=== PATIENT | female | born 1955 | race Two or more races ===

== ENCOUNTER → 2017-01-30 | Outpatient (CLI) | payer BC ==
[2017-01-30 10:41] LABS: Basophils # (auto) 0.1 uL; Basophils % (auto) 0.6 % (0.0-2.0); Eosinophils # (auto) 0.2 uL; Eosinophils % (auto) 1.6 % (0.0-7.0); Hematocrit 40.5 % (36.0-46.0); Hemoglobin 13.9 g/dL (12.2-16.2); Lymphocytes # (auto) 1.9 uL; Lymphocytes % (auto) 14.2 % (10.0-50.0); Mean Corpuscular Hemoglobin 30.3 pg (28.0-32.0); Mean Corpuscular Hgb Conc. 34.2 g/dL (32.0-36.0); Mean Corpuscular Volume 88.6 fL (80.0-100.0); Mean Platelet Volume 7.8 fL (7.4-10.4); Monocytes # (auto) 0.6 uL; Monocytes % (auto) 4.8 % (0.0-12.0); Neutrophils # (auto) 10.7 uL; Neutrophils % (auto) 78.8 % (37.0-80.0); Platelet Count (auto) 387 10^3/uL (140-450); Red Cell Distribution Width 13.2 % (11.6-16.0); White Blood Cell 13.5 10^3/uL (4.4-10.8)
[2017-01-30 10:55] LABS: Urine Bilirubin Negative (Negative); Urine Blood Negative /uL (Negative); Urine Color Yellow (Yellow); Urine Hyaline Cast FEW /lpf (0 - 2); Urine Mucus FEW (None Seen); Urine RBC 3 /hpf (0 - 4); Urine Squamous Epithelial Cell FEW /hpf (<5); Urine Urobilinogen Normal (Negative)
[2017-01-30 10:56] LABS: Urine Glucose 2+ mg/dL (Normal); Urine Ketone 1+ (Negative); Urine Nitrite POSITIVE (Negative)
[2017-01-30 11:04] LABS: Albumin 3.4 g/dL (3.4-5.0); BUN/Creatinine Ratio 14.9; Bilirubin, Total 0.3 mg/dL (0.2-1.0); Calcium 8.9 mg/dL (8.5-10.1); Potassium 4.4 mmol/L (3.5-5.1); Total Protein 8.5 g/dL (6.4-8.2)
== END | disposition home or self-care (01) ==
LOC: LAB 10:08
PROVIDERS: ATTEND Internal Medicine
DX: Z00.00 Encounter for general adult medical examination without abnormal findings (principal); I10 Essential (primary) hypertension; E78.2 Mixed hyperlipidemia; E55.9 Vitamin D deficiency, unspecified
CPT/HCPCS: 36415; 80053; 80061; 81001; 82306; 84443; 85025

== ENCOUNTER 2017-02-09 20:03 | Emergency (ER) | payer BC ==
[~2017-02-09] VITALS: Ht 170.2 cm; Wt 72.6 kg
[~2017-02-09 20:03] MED LIST: FLUT50SP13; LEVO175T31 PO; NORGTAB PO
[2017-02-09 20:46] LABS: Basophils # (auto) 0.2 uL; Basophils % (auto) 1.1 % (0.0-2.0); Eosinophils # (auto) 0.1 uL; Eosinophils % (auto) 0.6 % (0.0-7.0); Hematocrit 24.3 % (36.0-46.0); Hemoglobin 8.6 g/dL (12.2-16.2); Lymphocytes % (auto) 12.5 % (10.0-50.0); Mean Corpuscular Hemoglobin 30.8 pg (28.0-32.0); Mean Corpuscular Hgb Conc. 35.2 g/dL (32.0-36.0); Mean Corpuscular Volume 87.3 fL (80.0-100.0); Mean Platelet Volume 7.4 fL (7.4-10.4); Monocytes # (auto) 0.7 uL; Monocytes % (auto) 4.7 % (0.0-12.0); Neutrophils # (auto) 12.9 uL; Neutrophils % (auto) 81.1 % (37.0-80.0); Platelet Count (auto) 530 10^3/uL (140-450); Red Cell Distribution Width 13.1 % (11.6-16.0); White Blood Cell 15.9 10^3/uL (4.4-10.8)
[2017-02-09 20:57] LABS: INR 0.94 (0.9-1.15); Partial Thromboplastin Time 21.7 sec (22.64-33.71); Prothrombin Time 10.2 sec (9.37-12.3)
[2017-02-09 21:03] LABS: Albumin 2.9 g/dL (3.4-5.0); BUN/Creatinine Ratio 11.3; Bilirubin, Total 0.3 mg/dL (0.2-1.0); Calcium 8.2 mg/dL (8.5-10.1); Potassium 3.9 mmol/L (3.5-5.1); Total Protein 7.8 g/dL (6.4-8.2)
[2017-02-10] MEDS ORDERED: SITA50TA PO (00:28)
[2017-02-10] MEDS ORDERED: ASPI-231 PO (00:29)
[2017-02-10] MEDS ORDERED: METF-314 PO (00:30)
[2017-02-10] MEDS ORDERED: LEVO500T3 PO (00:31)
[2017-02-10 01:03] VITALS: BP 156/68
== END 2017-02-10 01:05 | disposition short-term general hospital (02) ==
LOC: EDBD 20:03 → ER 20:12
DX: I63.9 Cerebral infarction, unspecified (principal); D72.829 Elevated white blood cell count, unspecified; D64.9 Anemia, unspecified; R51 Headache; E11.65 Type 2 diabetes mellitus with hyperglycemia; Z79.4 Long term (current) use of insulin; I10 Essential (primary) hypertension; E07.9 Disorder of thyroid, unspecified
CPT/HCPCS: 36415; 70450; 71010; 80053; 84484; 85025; 85610; 85730; 93005

== ENCOUNTER → 2017-03-29 | Outpatient (CLI) | payer BC ==
[~2017-03-29] MED LIST changes: +ASPI-231 PO; -FLUT50SP13; -LEVO175T31 PO; +LEVO500T21 PO; +METF-371 PO; -NORGTAB PO; +SITA50TA PO
[2017-03-29 10:09] LABS: Urine Bilirubin Negative (Negative); Urine Blood TRACE /uL (Negative); Urine Color Yellow (Yellow); Urine Ketone TRACE (Negative); Urine Mucus FEW (None Seen); Urine Nitrite Negative (Negative); Urine RBC 2 /hpf (0 - 4); Urine Squamous Epithelial Cell FEW /hpf (<5)
[2017-03-29 10:12] LABS: Urine Glucose 4+ mg/dL (Normal)
[2017-03-29 10:15] LABS: Basophils # (auto) 0.1 uL; Basophils % (auto) 0.7 % (0.0-2.0); CONDITION Y; DEFINITIVE SEE PRINTOUT; Eosinophils # (auto) 0.1 uL; Eosinophils % (auto) 1.1 % (0.0-7.0); Hemoglobin 9.1 g/dL (12.2-16.2); Lymphocytes # (auto) 1.6 uL; Lymphocytes % (auto) 12.7 % (10.0-50.0); Mean Corpuscular Hemoglobin 25.5 pg (28.0-32.0); Mean Corpuscular Hgb Conc. 32.6 g/dL (32.0-36.0); Mean Corpuscular Volume 78.1 fL (80.0-100.0); Mean Platelet Volume 7.6 fL (7.4-10.4); Monocytes # (auto) 0.7 uL; Monocytes % (auto) 5.2 % (0.0-12.0); Neutrophils # (auto) 10.1 uL; Neutrophils % (auto) 80.3 % (37.0-80.0); Platelet Count (auto) 484 10^3/uL (140-450); Red Cell Distribution Width 16.5 % (11.6-16.0); White Blood Cell 12.6 10^3/uL (4.4-10.8)
[2017-03-29 10:29] LABS: Albumin 3.6 g/dL (3.4-5.0); BUN/Creatinine Ratio 15.7; Bilirubin, Total 0.4 mg/dL (0.2-1.0); Calcium 9.4 mg/dL (8.5-10.1); Potassium 3.9 mmol/L (3.5-5.1); Total Protein 8.2 g/dL (6.4-8.2)
== END | disposition home or self-care (01) ==
LOC: LAB 09:36
PROVIDERS: ATTEND Internal Medicine
DX: E03.9 Hypothyroidism, unspecified (principal); N92.1 Excessive and frequent menstruation with irregular cycle
CPT/HCPCS: 36415; 80053; 81001; 82728; 83036; 83540; 84443; 85025

== ENCOUNTER → 2017-05-31 | Outpatient (CLI) | payer BC ==
[2017-05-31 10:58] LABS: Basophils # (auto) 0.1 uL; CONDITION Y; DEFINITIVE SEE PRINTOUT; Eosinophils # (auto) 0.3 uL; Eosinophils % (auto) 2.6 % (0.0-7.0); Hematocrit 33.1 % (36.0-46.0); Hemoglobin 10.7 g/dL (12.2-16.2); Lymphocytes # (auto) 2.7 uL; Lymphocytes % (auto) 26.3 % (10.0-50.0); Mean Corpuscular Hemoglobin 21.9 pg (28.0-32.0); Mean Corpuscular Hgb Conc. 32.3 g/dL (32.0-36.0); Mean Corpuscular Volume 67.7 fL (80.0-100.0); Mean Platelet Volume 7.9 fL (6.9-10.8); Monocytes # (auto) 0.6 uL; Monocytes % (auto) 6.3 % (0.0-12.0); Neutrophils # (auto) 6.4 uL; Neutrophils % (auto) 63.8 % (37.0-80.0); Platelet Count (auto) 499 10^3/uL (140-450); Red Cell Distribution Width 19.2 % (11.8-14.3); White Blood Cell 10.1 10^3/uL (4.4-10.8)
[2017-05-31 11:04] LABS: Urine Bilirubin Negative (Negative); Urine Blood Negative /uL (Negative); Urine Color Yellow (Yellow); Urine Glucose Normal (Normal); Urine Ketone Negative (Negative); Urine Mucus FEW (None Seen); Urine Nitrite Negative (Negative); Urine RBC 1 /hpf (0 - 4); Urine Squamous Epithelial Cell MOD /hpf (<5); Urine Urobilinogen Normal (Negative)
[2017-05-31 11:26] LABS: Albumin 3.6 g/dL (3.4-5.0); BUN/Creatinine Ratio 17.9; Bilirubin, Total 0.3 mg/dL (0.2-1.0); Calcium 9.1 mg/dL (8.5-10.1); Potassium 4.3 mmol/L (3.5-5.1); Total Protein 8.4 g/dL (6.4-8.2)
[2017-05-31 11:42] LABS: Platelet Estimate Increased
[2017-05-31 11:44] LABS: Anisocytosis Slight; Microcytosis Marked; Ovalocytes FEW; Stomatocytes Few
[2017-05-31 11:45] LABS: Hypochromia Moderate
== END | disposition home or self-care (01) ==
LOC: LAB 10:32
PROVIDERS: ATTEND Internal Medicine
DX: I10 Essential (primary) hypertension (principal); E11.9 Type 2 diabetes mellitus without complications
CPT/HCPCS: 36415; 80053; 80061; 81001; 83036; 84443; 85025

== ENCOUNTER 2017-06-05 10:46 | Observation (INO) | payer BC ==
[~2017-06-05] VITALS: Ht 157.5 cm; Wt 89.8 kg
[2017-06-05] MEDS ORDERED: LABETALOL HCL 5 MG/ML 4ML SYRINGE IV ONE (11:00)
[2017-06-05 11:36] LABS: INR 0.9 (0.9-1.15); Partial Thromboplastin Time 21.5 sec (22.64-33.71); Prothrombin Time 9.8 sec (9.37-12.3)
[2017-06-05 11:42] LABS: Albumin 3.7 g/dL (3.4-5.0); Alkaline Phosphatase 115 U/L (45-117); Anion Gap 8 (5-15); Aspartate Aminotransferase 14 U/L (15-37); BUN/Creatinine Ratio 17.1; Bilirubin, Total 0.4 mg/dL (0.2-1.0); Blood Urea Nitrogen 13 mg/dL (7-18); Calcium 9.1 mg/dL (8.5-10.1); Carbon Dioxide 23 mmol/L (21-32); Chloride 102 mmol/L (98-107); GFR African American 100 mL/min; GFR Non-African American 83 mL/min; Glucose 246 mg/dL (74-106); Potassium 4.4 mmol/L (3.5-5.1); Sodium 133 mmol/L (136-145); Total Protein 8.4 g/dL (6.4-8.2)
[2017-06-05 11:55] LABS: B-Type Natriuretic Peptide 57.99 pg/mL (0-100)
[2017-06-05 12:08] LABS: Temperature: 21.9 C (20.0-25.0)
[2017-06-05] MEDS ORDERED: cloNIDine HCL 0.1 MG TAB PO ONE (14:45)
[2017-06-05] MEDS ORDERED: hydrALAZINE HCL 20 MG/ML VL IV ONE (15:45)
[2017-06-05 16:25] VITALS: BP 152/67
== END 2017-06-05 14:27 | disposition home or self-care (01) | DRG 305 ==
LOC: ER 10:46 → OVERFLOW 11:04 → ER 14:27
PROVIDERS: ADMIT Family Medicine; ATTEND Family Medicine
DX: I10 Essential (primary) hypertension (principal); E03.9 Hypothyroidism, unspecified; E11.9 Type 2 diabetes mellitus without complications; Z79.84 Long term (current) use of oral hypoglycemic drugs; Z86.73 Personal history of transient ischemic attack (TIA), and cerebral infarction without residual deficits
CPT/HCPCS: 36415; 71010; 80053; 83735; 83880; 84443; 84484; 85610; 85730; 93005; 96374; 96375; 99285; G0378; J0360; J3490

== ENCOUNTER → 2018-01-09 | Outpatient (CLI) | payer BC ==
[2018-01-09 11:11] LABS: Basophils # (auto) 0.1 uL; Basophils % (auto) 0.9 % (0.0-2.0); Eosinophils # (auto) 0.2 uL; Eosinophils % (auto) 2.1 % (0.0-7.0); Hematocrit 38.1 % (36.0-46.0); Hemoglobin 12.4 g/dL (12.2-16.2); Lymphocytes # (auto) 2.5 uL; Lymphocytes % (auto) 21.9 % (10.0-50.0); Mean Corpuscular Hemoglobin 27.9 pg (28.0-32.0); Mean Corpuscular Hgb Conc. 32.7 g/dL (32.0-36.0); Mean Corpuscular Volume 85.3 fL (80.0-100.0); Monocytes # (auto) 0.7 uL; Neutrophils # (auto) 8.1 uL; Neutrophils % (auto) 69.1 % (37.0-80.0); Platelet Count (auto) 342 10^3/uL (140-450); Red Blood Cells 4.47 10^6/uL (4.0-5.20); Red Cell Distribution Width 15.4 % (11.8-14.3); White Blood Cell 11.6 10^3/uL (4.4-10.8)
[2018-01-09 11:33] LABS: Albumin 3.5 g/dL (3.4-5.0); BUN/Creatinine Ratio 17.6; Bilirubin, Total 0.3 mg/dL (0.2-1.0); Calcium 9.5 mg/dL (8.5-10.1); Potassium 3.9 mmol/L (3.5-5.1); Total Protein 8.5 g/dL (6.4-8.2)
== END | disposition home or self-care (01) ==
LOC: LAB 10:31
PROVIDERS: ATTEND Physician Assistant
DX: E03.9 Hypothyroidism, unspecified (principal); E78.2 Mixed hyperlipidemia; E11.59 Type 2 diabetes mellitus with other circulatory complications; D64.9 Anemia, unspecified; I63.312 Cerebral infarction due to thrombosis of left middle cerebral artery; Z86.73 Personal history of transient ischemic attack (TIA), and cerebral infarction without residual deficits; I10 Essential (primary) hypertension; Z79.4 Long term (current) use of insulin; Z79.82 Long term (current) use of aspirin
CPT/HCPCS: 36415; 80053; 80061; 83036; 84443; 85025

== ENCOUNTER → 2019-01-13 | Outpatient (CLI) | payer BC ==
[2019-01-13 12:04] LABS: Basophils # (auto) 0.1 uL; Basophils % (auto) 1.1 % (0.0-2.0); Eosinophils # (auto) 0.3 uL; Hematocrit 36.1 % (36.0-46.0); Hemoglobin 12.4 g/dL (12.2-16.2); Lymphocytes # (auto) 2.4 uL; Lymphocytes % (auto) 20.8 % (10.0-50.0); Mean Corpuscular Hemoglobin 30.2 pg (28.0-32.0); Mean Corpuscular Hgb Conc. 34.3 g/dL (32.0-36.0); Monocytes # (auto) 0.6 uL; Monocytes % (auto) 5.1 % (0.0-12.0); Nucleated Red Blood Cells % 0.1 %; Platelet Count (auto) 346 10^3/uL (140-450); Red Blood Cells 4.11 10^6/uL (4.0-5.20); Red Cell Distribution Width 13.5 % (11.8-14.3); White Blood Cell 11.4 10^3/uL (4.4-10.8)
[2019-01-13 12:16] LABS: Urine Bacteria MANY /hpf (None Seen); Urine Blood TRACE /uL (Negative); Urine Specific Gravity 1.017 (1.001-1.035); Urine WBC 137 /hpf (0 - 5); Urine WBC Clumps PRESENT /hpf (None Seen)
[2019-01-13 12:39] LABS: Albumin 3.7 g/dL (3.4-5.0); Calcium 9.5 mg/dL (8.5-10.1); Potassium 4.1 mmol/L (3.5-5.1)
[2019-01-13 12:46] LABS: BUN/Creatinine Ratio 18.4; Bilirubin, Total 0.4 mg/dL (0.2-1.0); Total Protein 8.3 g/dL (6.4-8.2)
[2019-01-13 12:58] LABS: Free T4 (Free Thyroxine) 1.42 ng/dL (0.89-1.76)
[2019-01-13 12:59] LABS: T3 Total 0.88 ng/mL (0.60-1.81)
[2019-01-13 15:48] LABS: % Iron Saturation 22.6 % (15-50)
== END | disposition home or self-care (01) ==
LOC: LAB 10:19
PROVIDERS: ATTEND Physician Assistant
DX: E78.2 Mixed hyperlipidemia (principal); E11.59 Type 2 diabetes mellitus with other circulatory complications; E03.9 Hypothyroidism, unspecified; D50.0 Iron deficiency anemia secondary to blood loss (chronic); D64.9 Anemia, unspecified
CPT/HCPCS: 36415; 80053; 80061; 81001; 83036; 83540; 83550; 84439; 84443; 84480; 85025

== ENCOUNTER → 2020-03-31 | Outpatient (CLI) | payer BC ==
[2020-03-31 13:03] LABS: Follicle Stimulating Hormone 48.25 IU/L (SEE BELOW); Leuteinizing Hormone 33.2 IU/L
== END | disposition home or self-care (01) ==
LOC: LAB 10:55
PROVIDERS: ATTEND Specialist
DX: N95.0 Postmenopausal bleeding (principal)
CPT/HCPCS: 82670; 83001; 83002

== ENCOUNTER → 2020-06-01 | Outpatient (CLI) | payer BC ==
[2020-06-01 12:52] LABS: Urine Bacteria MANY /hpf (None Seen); Urine Blood Negative /uL (Negative); Urine Specific Gravity 1.009 (1.001-1.035); Urine WBC 7 /hpf (0 - 5)
[2020-06-01 13:02] LABS: Basophils # (auto) 0.1 10 ^3/uL (0-0.2); Basophils % (auto) 0.7 % (0.0-2.0); Eosinophils # (auto) 0.7 10 ^3/uL (0-0.8); Eosinophils % (auto) 6.6 % (0.0-7.0); Hematocrit 38.3 % (36.0-46.0); Hemoglobin 12.6 g/dL (12.2-16.2); Lymphocytes # (auto) 2.2 10 ^3/uL (0.4-5.4); Lymphocytes % (auto) 19.6 % (10.0-50.0); Mean Corpuscular Hemoglobin 28.6 pg (28.0-32.0); Mean Corpuscular Hgb Conc. 32.9 g/dL (32.0-36.0); Monocytes # (auto) 0.6 10 ^3/uL (0-1.3); Monocytes % (auto) 5.6 % (0.0-12.0); Neutrophils # (auto) 7.6 10 ^3/uL (1.6-8.6); Neutrophils % (auto) 67.5 % (37.0-80.0); Nucleated Red Blood Cells % 0.1 %; Platelet Count (auto) 385 10^3/uL (140-450); Red Blood Cells 4.41 10^6/uL (4.0-5.20); White Blood Cell 11.2 10^3/uL (4.4-10.8)
[2020-06-01 22:41] LABS: Potassium 4.3 mmol/L (3.5-5.1)
[2020-06-01 22:47] LABS: Albumin 3.9 g/dL (3.4-5.0); BUN/Creatinine Ratio 21.1; Bilirubin, Total 0.3 mg/dL (0.2-1.0); Calcium 10.1 mg/dL (8.5-10.1); Total Protein 8.5 g/dL (6.4-8.2)
== END | disposition home or self-care (01) ==
LOC: LAB 12:20
PROVIDERS: ATTEND Physician Assistant
DX: I10 Essential (primary) hypertension (principal); E78.2 Mixed hyperlipidemia; I63.12 Cerebral infarction due to embolism of basilar artery; E11.59 Type 2 diabetes mellitus with other circulatory complications; E03.9 Hypothyroidism, unspecified; R00.0 Tachycardia, unspecified; D64.9 Anemia, unspecified
CPT/HCPCS: 36415; 80053; 80061; 81001; 83036; 85025

== ENCOUNTER → 2022-02-07 | Outpatient (CLI) | payer BC ==
[~2022-02-07] MED LIST changes: -ASPI-231 PO; +ASPI1TAB20 PO; -LEVO500T21 PO; +LEVO500T31 PO
[2022-02-07 10:46] LABS: Basophils # (auto) 0.1 10 ^3/uL (0-0.2); Basophils % (auto) 0.8 % (0.0-2.0); Eosinophils # (auto) 0.4 10 ^3/uL (0-0.8); Eosinophils % (auto) 3.3 % (0.0-7.0); Hematocrit 37.7 % (36.0-46.0); Hemoglobin 12.6 g/dL (12.2-16.2); Lymphocytes # (auto) 2.6 10 ^3/uL (0.4-5.4); Lymphocytes % (auto) 23.8 % (10.0-50.0); Mean Corpuscular Hemoglobin 29.1 pg (28.0-32.0); Mean Corpuscular Hgb Conc. 33.5 g/dL (32.0-36.0); Mean Corpuscular Volume 86.9 fL (80.0-100.0); Monocytes # (auto) 0.7 10 ^3/uL (0-1.3); Monocytes % (auto) 6.9 % (0.0-12.0); Neutrophils % (auto) 65.2 % (37.0-80.0); Nucleated Red Blood Cells % 0.1 %; Red Blood Cells 4.34 10^6/uL (4.0-5.20); Red Cell Distribution Width 12.9 % (11.8-14.3); White Blood Cell 10.8 10^3/uL (4.4-10.8)
[2022-02-07 11:01] LABS: Potassium 4.3 mmol/L (3.5-5.1)
[2022-02-07 11:13] LABS: Albumin 3.5 g/dL (3.4-5.0); BUN/Creatinine Ratio 21.7; Bilirubin, Total 0.4 mg/dL (0.2-1.0); Calcium 9.7 mg/dL (8.5-10.1); Total Protein 8.2 g/dL (6.4-8.2)
== END | disposition home or self-care (01) ==
LOC: LAB 09:16
PROVIDERS: ATTEND Nurse Practitioner Family
DX: I63.312 Cerebral infarction due to thrombosis of left middle cerebral artery (principal); E11.59 Type 2 diabetes mellitus with other circulatory complications; D64.9 Anemia, unspecified; E78.2 Mixed hyperlipidemia; E03.9 Hypothyroidism, unspecified; I10 Essential (primary) hypertension
CPT/HCPCS: 36415; 80053; 80061; 82043; 83036; 84443; 85025

== ENCOUNTER → 2022-04-13 | Outpatient (CLI) | payer BC | END | disposition home or self-care (01) | LOC: LAB 12:08 | PROVIDERS: ATTEND Nurse Practitioner Family | DX: E03.9 Hypothyroidism, unspecified (principal) | CPT/HCPCS: 36415; 84439; 84443 ==

== ENCOUNTER → 2022-07-12 | Outpatient (CLI) | payer MEDICARE | END | disposition home or self-care (01) | LOC: LAB 14:25 | PROVIDERS: ATTEND Nurse Practitioner Family | DX: E03.9 Hypothyroidism, unspecified (principal) | CPT/HCPCS: 36415; 84443 ==